=== PATIENT | male | born 1950 | race Two or more races ===

== ENCOUNTER 2018-02-26 13:48 | Inpatient (IN) | payer MEDICARE, OTHER ==
[~2018-02-26] VITALS: Ht 182.9 cm; Wt 96.4 kg
[2018-02-26] MEDS ORDERED: ACETAMINOPHEN 500 MG TAB PO ONE (14:00)
[2018-02-26 15:06] LABS: Hematocrit 42.9 % (41.0-53.0); Hemoglobin 13.9 g/dL (13.5-17.5); Mean Corpuscular Hemoglobin 31.2 pg (28.0-32.0); Mean Corpuscular Hgb Conc. 32.5 g/dL (32.0-36.0); Mean Corpuscular Volume 95.9 fL (80.0-100.0); Platelet Count (auto) 183 10^3/uL (140-450); Red Blood Cells 4.47 10^6/uL (4.5-5.90); Red Cell Distribution Width 14.3 % (11.8-14.3); White Blood Cell 14.7 10^3/uL (4.4-10.8)
[2018-02-26 15:11] LABS: Alanine Aminotransferase 32 U/L (16-61); Anion Gap 12 (5-15); Aspartate Aminotransferase 23 U/L (15-37); BUN/Creatinine Ratio 16.9; Blood Urea Nitrogen 23 mg/dL (7-18); Calcium 9.6 mg/dL (8.5-10.1); Carbon Dioxide 27 mmol/L (21-32); Chloride 97 mmol/L (98-107); GFR African American 68 mL/min; GFR Non-African American 56 mL/min; Glucose 123 mg/dL (74-106); Magnesium 1.9 mg/dL (1.6-2.6); Sodium 136 mmol/L (136-145)
[2018-02-26 15:12] LABS: Band Neutrophils % (manual) 0; Basophils % (manual) 0 (0.0-2.0); Blast Cells 0; Metamyelocytes % 0; Myelocytes % 0; Promyelocytes % 0; Reactive Lymphocytes 0
[2018-02-26 15:17] LABS: Lactic Acid w/Reflex 3.4 mmol/L (0.4-2.0)
[2018-02-26 15:30] LABS: Alkaline Phosphatase 62 U/L (45-117); Bilirubin, Total 0.6 mg/dL (0.2-1.0); Total Protein 8.5 g/dL (6.4-8.2)
[2018-02-26] MEDS ORDERED: VANCOMYCIN PER PHARMACY 0 MG IV SCH (15:45)
[2018-02-26] MEDS ORDERED: cefTRIAXone 1GM/10ml IVPUSH 10 ML IV ONE (15:45)
[2018-02-26] MEDS ORDERED: ONDANSETRON HCL 4 MG/2 ML VIAL IV PRN (16:00)
[2018-02-26] MEDS ORDERED: MORPHINE SULFATE 8mg/ml INJ SDV IV PRN (16:00)
[2018-02-26] MEDS ORDERED: ACETAMINOPHEN 325 MG TAB PO PRN (16:00)
[2018-02-26] MEDS ORDERED: DOCUSATE SOD 100 MG CAP PO PRN (16:00)
[2018-02-26] MEDS ORDERED: NITROGLYCERIN 0.4 MG SL TAB SL PRN (16:00)
[2018-02-26] MEDS ORDERED: SODIUM CHLORIDE 0.9% 2,000 ML IV ONE (16:15)
[2018-02-26] MEDS ORDERED: LORazepam 2MG/ML-1ML VIAL IV PRN (17:00)
[2018-02-26 17:39] LABS: Folate (Folic Acid) 20.13 ng/mL (5.38-24)
[2018-02-26] MEDS: METHADONE HCL 10 MG TAB PO SCH (18:09)
[2018-02-26] MEDS: ENOXAPARIN SOD 40 MG/0.4 ML SYRINGE SC SCH (18:10)
[2018-02-26] MEDS: VANCOMYCIN 1,250 MG in D5W 5% 250 ML IV SCH (18:10)
[2018-02-26] MEDS: FAMOTIDINE 20 MG TAB PO SCH ×2 (18:10→21:59)
[2018-02-26 18:13] LABS: Eosinophils % (manual) 1 (0-7); Lymphocytes % (manual) 3 (10.0-50.0); Monocytes % (manual) 4 (0-12)
[2018-02-26 19:09] LABS: Urine Bacteria NONE SEEN /hpf (None Seen); Urine Blood Negative /uL (Negative); Urine Specific Gravity 1.016 (1.001-1.035); Urine WBC <1 /hpf (0 - 3)
[2018-02-26 19:56] LABS: Lactic Acid w/Reflex 2.6 mmol/L (0.4-2.0)
[2018-02-26 20:00] VITALS: BP 130/82
[2018-02-26] MEDS ORDERED: ALPR-229 PO (20:39)
[2018-02-26] MEDS ORDERED: LOVA40TA72 PO (20:39)
[2018-02-26] MEDS ORDERED: PIO30T PO (20:39)
[2018-02-26] MEDS ORDERED: METH10T PO (20:39)
[2018-02-26] MEDS ORDERED: GABA300C10 PO (20:39)
[2018-02-26] MEDS ORDERED: AMLO5TAB2 PO (20:39)
[2018-02-26] MEDS ORDERED: DAPA1TAB4 PO (20:39)
[2018-02-26] MEDS ORDERED: LINA5TAB PO (20:39)
[2018-02-26] MEDS ORDERED: CYCL1TAB18 PO (20:39)
[2018-02-26] MEDS: ATORVASTATIN 20 MG TAB PO SCH (21:59)
[2018-02-26] MEDS: GABAPENTIN 300 MG CAP PO SCH (21:59)
[2018-02-26] MEDS: SODIUM CHLOR 0.9% PF (SALINE LOCK) 10ML VIAL/SYR IV SCH (22:00)
[2018-02-27] MEDS: METHADONE HCL 10 MG TAB PO SCH ×4 (01:04→18:11)
[2018-02-27 01:15] VITALS: BP 130/82
[2018-02-27 05:13] VITALS: BP 117/77
[2018-02-27] MEDS: GABAPENTIN 300 MG CAP PO SCH ×3 (06:00→21:20)
[2018-02-27] MEDS: SODIUM CHLOR 0.9% PF (SALINE LOCK) 10ML VIAL/SYR IV SCH ×3 (06:36→21:20)
[2018-02-27 07:26] LABS: Basophils # (auto) 0.1 uL; Basophils % (auto) 0.4 % (0.0-2.0); Eosinophils # (auto) 0 uL; Eosinophils % (auto) 0.1 % (0.0-7.0); Hematocrit 42.9 % (41.0-53.0); Hemoglobin 14.1 g/dL (13.5-17.5); Lymphocytes # (auto) 0.7 uL; Lymphocytes % (auto) 4.4 % (10.0-50.0); Mean Corpuscular Hemoglobin 30.8 pg (28.0-32.0); Mean Corpuscular Hgb Conc. 32.8 g/dL (32.0-36.0); Mean Corpuscular Volume 93.9 fL (80.0-100.0); Monocytes # (auto) 0.7 uL; Monocytes % (auto) 4.8 % (0.0-12.0); Neutrophils % (auto) 90.3 % (37.0-80.0); Nucleated Red Blood Cells % 0.1 %; Platelet Count (auto) 182 10^3/uL (140-450); Red Blood Cells 4.57 10^6/uL (4.5-5.90); Red Cell Distribution Width 14.6 % (11.8-14.3); White Blood Cell 15.5 10^3/uL (4.4-10.8)
[2018-02-27 07:45] LABS: Albumin 3.1 g/dL (3.4-5.0); BUN/Creatinine Ratio 15.3; Calcium 8.9 mg/dL (8.5-10.1); Potassium 4.8 mmol/L (3.5-5.1)
[2018-02-27 07:56] LABS: Bilirubin, Total 0.4 mg/dL (0.2-1.0); Total Protein 8.2 g/dL (6.4-8.2)
[2018-02-27 09:00] VITALS: BP 111/70
[2018-02-27] MEDS: ENOXAPARIN SOD 40 MG/0.4 ML SYRINGE SC SCH (09:52)
[2018-02-27] MEDS: cefTRIAXone 1GM/10ml IVPUSH 10 ML IV SCH (09:53)
[2018-02-27] MEDS: amLODIPine BESYLATE 5 MG TAB PO SCH (09:54)
[2018-02-27] MEDS: MULTIPLE VITAMIN TAB PO SCH (09:54)
[2018-02-27] MEDS: HYDROcodone-ACET 5/325MG TAB PO PRN ×3 (09:55→21:19)
[2018-02-27] MEDS: PIOGLITAZONE HYDROCHLORIDE 30 MG TAB PO SCH (09:55)
[2018-02-27] MEDS: FAMOTIDINE 20 MG TAB PO SCH ×2 (09:55→21:19)
[2018-02-27] MEDS ORDERED: VANCOMYCIN 1GM/250ML 0 ML IV ONE (11:43)
[2018-02-27] MEDS: TRADJENTA 5MG PO SCH (12:25)
[2018-02-27] MEDS: FARXIGA 10MG PO SCH (12:25)
[2018-02-27] MEDS: ALPRAZolam 0.5 MG TAB PO PRN ×2 (13:44→21:19)
[2018-02-27 15:00] VITALS: BP 135/75
[2018-02-27] MEDS: VANCOMYCIN 1,250 MG in D5W 5% 250 ML IV SCH (16:23)
[2018-02-27] MEDS: ATORVASTATIN 20 MG TAB PO SCH (21:18)
[2018-02-27] MEDS: CYCLOBENZAPRINE HCL 10 MG TAB PO PRN (21:19)
[2018-02-27 22:00] VITALS: BP 129/76
[2018-02-28] MEDS: METHADONE HCL 10 MG TAB PO SCH ×5 (00:23→12:00)
[2018-02-28 04:50] VITALS: BP 138/82
[2018-02-28] MEDS: VANCOMYCIN 1,250 MG in D5W 5% 250 ML IV SCH (05:12)
[2018-02-28] MEDS: SODIUM CHLOR 0.9% PF (SALINE LOCK) 10ML VIAL/SYR IV SCH (05:12)
[2018-02-28] MEDS: CYCLOBENZAPRINE HCL 10 MG TAB PO PRN (05:18)
[2018-02-28] MEDS: GABAPENTIN 300 MG CAP PO SCH (05:18)
[2018-02-28 06:58] LABS: Basophils # (auto) 0 uL; Basophils % (auto) 0.4 % (0.0-2.0); Eosinophils # (auto) 0.2 uL; Eosinophils % (auto) 1.6 % (0.0-7.0); Hematocrit 43.1 % (41.0-53.0); Hemoglobin 14.1 g/dL (13.5-17.5); Lymphocytes # (auto) 1.2 uL; Lymphocytes % (auto) 10.6 % (10.0-50.0); Mean Corpuscular Hemoglobin 31.1 pg (28.0-32.0); Mean Corpuscular Hgb Conc. 32.8 g/dL (32.0-36.0); Monocytes # (auto) 1.1 uL; Monocytes % (auto) 9.8 % (0.0-12.0); Neutrophils # (auto) 8.8 uL; Neutrophils % (auto) 77.6 % (37.0-80.0); Nucleated Red Blood Cells % 0.1 %; Platelet Count (auto) 159 10^3/uL (140-450); Red Blood Cells 4.54 10^6/uL (4.5-5.90); Red Cell Distribution Width 14.7 % (11.8-14.3); White Blood Cell 11.3 10^3/uL (4.4-10.8)
[2018-02-28 07:03] LABS: Potassium 3.6 mmol/L (3.5-5.1)
[2018-02-28 07:15] LABS: BUN/Creatinine Ratio 15.4; Bilirubin, Total 0.4 mg/dL (0.2-1.0); Calcium 8.7 mg/dL (8.5-10.1); Total Protein 7.9 g/dL (6.4-8.2)
[2018-02-28 08:00] VITALS: BP 111/70
[2018-02-28 09:00] VITALS: BP 153/83
[2018-02-28] MEDS: FAMOTIDINE 20 MG TAB PO SCH (09:49)
[2018-02-28] MEDS: amLODIPine BESYLATE 5 MG TAB PO SCH (09:50)
[2018-02-28] MEDS: MULTIPLE VITAMIN TAB PO SCH (09:50)
[2018-02-28] MEDS: cefTRIAXone 1GM/10ml IVPUSH 10 ML IV SCH (09:50)
[2018-02-28] MEDS: ENOXAPARIN SOD 40 MG/0.4 ML SYRINGE SC SCH (09:50)
[2018-02-28] MEDS: TRADJENTA 5MG PO SCH (09:51)
[2018-02-28] MEDS: FARXIGA 10MG PO SCH (09:51)
[2018-02-28] MEDS: PIOGLITAZONE HYDROCHLORIDE 30 MG TAB PO SCH (09:54)
[2018-02-28 12:55] VITALS: BP 153/83
[2018-02-28 13:00] VITALS: BP 135/82
== END 2018-02-28 13:55 | disposition home or self-care (01) | DRG 871 ==
LOC: ER 13:48 → EDBD 13:48 → TELE 13:49 → TELE-EAST 18:28
PROVIDERS: ADMIT Internal Medicine; ATTEND Family Medicine
DX: A41.9 Sepsis, unspecified organism (principal); I63.9 Cerebral infarction, unspecified; J18.1 Lobar pneumonia, unspecified organism; G93.41 Metabolic encephalopathy; L03.116 Cellulitis of left lower limb; E11.21 Type 2 diabetes mellitus with diabetic nephropathy; E11.22 Type 2 diabetes mellitus with diabetic chronic kidney disease; E11.40 Type 2 diabetes mellitus with diabetic neuropathy, unspecified; E11.65 Type 2 diabetes mellitus with hyperglycemia; E78.00 Pure hypercholesterolemia, unspecified; Z79.899 Other long term (current) drug therapy; F02.80 Dementia in other diseases classified elsewhere, unspecified severity, without behavioral disturbance, psychotic disturbance, mood disturbance, and anxiety; F17.200 Nicotine dependence, unspecified, uncomplicated; G30.9 Alzheimer's disease, unspecified; G89.29 Other chronic pain; I12.9 Hypertensive chronic kidney disease with stage 1 through stage 4 chronic kidney disease, or unspecified chronic kidney disease; L29.9 Pruritus, unspecified; N18.3 Chronic kidney disease, stage 3 (moderate); F41.9 Anxiety disorder, unspecified; Z82.49 Family history of ischemic heart disease and other diseases of the circulatory system; Z83.3 Family history of diabetes mellitus; M54.5 Low back pain
CPT/HCPCS: 36415; 70450; 70551; 71045; 80053; 81001; 82533; 82607; 82746; 82962; 83036; 83605; 83735; 84443; 84484; 85007; 85025; 85027; 87040; 87086; 93005; 93306; 93886; 95819; 96361; 96372; 96374; 96376; 97163; J7060

== ENCOUNTER 2018-05-30 21:30 | Inpatient (IN) | payer MEDICARE, OTHER ==
[~2018-05-30] VITALS: Ht 182.9 cm; Wt 99.2 kg
[~2018-05-30 21:30] MED LIST: ALPR-229 PO; AMLO5TAB13 PO; CYCL1TAB18 PO; DAPA1TAB4 PO; GABA300C10 PO; LINA5TAB PO; LOVA40TA72 PO; METH10T PO; PIO30T PO
[2018-05-30 22:32] LABS: Basophils # (auto) 0.1 uL; Basophils % (auto) 0.5 % (0.0-2.0); Eosinophils # (auto) 0 uL; Hematocrit 48.3 % (41.0-53.0); Hemoglobin 16.1 g/dL (13.5-17.5); Lymphocytes % (auto) 6.2 % (10.0-50.0); Mean Corpuscular Hemoglobin 30.6 pg (28.0-32.0); Mean Corpuscular Hgb Conc. 33.4 g/dL (32.0-36.0); Mean Corpuscular Volume 91.6 fL (80.0-100.0); Monocytes # (auto) 0.9 uL; Monocytes % (auto) 5.7 % (0.0-12.0); Neutrophils # (auto) 14.3 uL; Neutrophils % (auto) 87.6 % (37.0-80.0); Nucleated Red Blood Cells % 0.1 %; Platelet Count (auto) 237 10^3/uL (140-450); Red Blood Cells 5.27 10^6/uL (4.5-5.90); Red Cell Distribution Width 14.7 % (11.8-14.3); White Blood Cell 16.4 10^3/uL (4.4-10.8)
[2018-05-30 22:48] LABS: Albumin 3.7 g/dL (3.4-5.0); BUN/Creatinine Ratio 14.2; Calcium 8.9 mg/dL (8.5-10.1); Potassium 3.8 mmol/L (3.5-5.1)
[2018-05-30 22:50] LABS: Lactic Acid w/Reflex 2.8 mmol/L (0.4-2.0)
[2018-05-30 22:51] LABS: Bilirubin, Total 0.4 mg/dL (0.2-1.0); Total Protein 8.7 g/dL (6.4-8.2)
[2018-05-31] MEDS ORDERED: SODIUM CHLORIDE 0.9% 1,000 ML IVB ONE (03:04)
[2018-05-31 03:32] LABS: Urine Bacteria NONE SEEN /hpf (None Seen); Urine Blood Negative /uL (Negative); Urine Specific Gravity 1.027 (1.001-1.035); Urine WBC <1 /hpf (0 - 3)
[2018-05-31 04:06] LABS: Amylase 46 U/L (25-115); Lipase 63 U/L (73-393)
[2018-05-31] MEDS ORDERED: ACETAMINOPHEN 325 MG TAB PO PRN (05:45)
[2018-05-31] MEDS ORDERED: ONDANSETRON HCL 4 MG/2 ML VIAL IV PRN (05:45)
[2018-05-31] MEDS: PANTOPRAZOLE 40 MG/10 ML VIAL IV SCH (06:13)
[2018-05-31] MEDS: cefTRIAXone 1GM/10ml IVPUSH 10 ML IV SCH (06:13)
[2018-05-31] MEDS: SODIUM CHLORIDE 0.9% 1,000 ML IV SCH ×2 (06:13→20:11)
[2018-05-31 07:15] LABS: Hematocrit 43.7 % (41.0-53.0); Hemoglobin 14.6 g/dL (13.5-17.5)
[2018-05-31] MEDS: ACCU-CHEK COMFORT CURVE STRIP VI SCH ×3 (10:32→20:49)
[2018-05-31] MEDS: amLODIPine BESYLATE 5 MG TAB PO SCH (10:33)
[2018-05-31] MEDS: PIOGLITAZONE HYDROCHLORIDE 30 MG TAB PO SCH (10:34)
[2018-05-31] MEDS ORDERED: METHADONE HCL 10 MG TAB PO SCH (12:00)
[2018-05-31] MEDS: ALPRAZolam 0.5 MG TAB PO PRN ×2 (12:20→20:49)
[2018-05-31] MEDS: CYCLOBENZAPRINE HCL 10 MG TAB PO PRN ×2 (12:20→23:50)
[2018-05-31 13:48] VITALS: BP 129/85
[2018-05-31 14:32] LABS: INR 0.99 (0.9-1.15); Partial Thromboplastin Time 32.2 sec (23.78-33.04); Prothrombin Time 10.6 sec (9.27-12.13)
[2018-05-31] MEDS: metroNIDAZOLE 500MG/100ML 100 ML IV SCH ×2 (14:42→20:49)
[2018-05-31] MEDS: METHADONE HCL 10 MG TAB PO SCH ×2 (14:43→20:49)
[2018-05-31 15:14] VITALS: BP_SYST 129; BP_SYST 151; BP_DIAS 85; BP_DIAS 98
[2018-05-31 17:10] VITALS: BP 130/75
[2018-05-31] MEDS: HYDROcodone-ACET 5/325MG TAB PO PRN ×2 (19:56→23:50)
[2018-05-31 21:58] VITALS: BP 137/86
[2018-06-01] MEDS: METHADONE HCL 10 MG TAB PO SCH ×4 (03:10→21:13)
[2018-06-01 05:00] VITALS: BP 144/87
[2018-06-01] MEDS: metroNIDAZOLE 500MG/100ML 100 ML IV SCH ×3 (05:36→22:10)
[2018-06-01] MEDS: ACCU-CHEK COMFORT CURVE STRIP VI SCH ×4 (05:36→22:10)
[2018-06-01] MEDS: cefTRIAXone 1GM/10ml IVPUSH 10 ML IV SCH (05:36)
[2018-06-01] MEDS: PANTOPRAZOLE 40 MG/10 ML VIAL IV SCH (05:37)
[2018-06-01 05:47] LABS: Albumin 2.9 g/dL (3.4-5.0); Bilirubin, Total 0.4 mg/dL (0.2-1.0); Calcium 7.7 mg/dL (8.5-10.1); Potassium 3.5 mmol/L (3.5-5.1)
[2018-06-01] MEDS: HYDROcodone-ACET 5/325MG TAB PO PRN ×2 (05:51→23:15)
[2018-06-01] MEDS: ALPRAZolam 0.5 MG TAB PO PRN ×2 (08:36→18:05)
[2018-06-01 09:00] VITALS: BP 121/76
[2018-06-01] MEDS: SODIUM CHLORIDE 0.9% 1,000 ML IV SCH ×2 (09:45→23:15)
[2018-06-01 11:20] LABS: Basophils # (auto) 0 uL; Basophils % (auto) 0.3 % (0.0-2.0); Eosinophils # (auto) 0.1 uL; Eosinophils % (auto) 1.3 % (0.0-7.0); Hematocrit 42.5 % (41.0-53.0); Hemoglobin 14.3 g/dL (13.5-17.5); Lymphocytes # (auto) 1.1 uL; Lymphocytes % (auto) 12.8 % (10.0-50.0); Mean Corpuscular Hemoglobin 31.1 pg (28.0-32.0); Mean Corpuscular Hgb Conc. 33.7 g/dL (32.0-36.0); Mean Corpuscular Volume 92.4 fL (80.0-100.0); Monocytes # (auto) 0.6 uL; Monocytes % (auto) 7.1 % (0.0-12.0); Neutrophils # (auto) 6.7 uL; Neutrophils % (auto) 78.5 % (37.0-80.0); Platelet Count (auto) 169 10^3/uL (140-450); Red Blood Cells 4.59 10^6/uL (4.5-5.90); Red Cell Distribution Width 14.4 % (11.8-14.3); White Blood Cell 8.6 10^3/uL (4.4-10.8)
[2018-06-01 11:58] VITALS: BP 132/86
[2018-06-01] MEDS: PIOGLITAZONE HYDROCHLORIDE 30 MG TAB PO SCH (14:02)
[2018-06-01] MEDS: CYCLOBENZAPRINE HCL 10 MG TAB PO PRN (14:03)
[2018-06-01] MEDS: amLODIPine BESYLATE 5 MG TAB PO SCH (14:03)
[2018-06-01 17:00] VITALS: BP 131/79
[2018-06-01] MEDS: SUCRALFATE 1 GM/10 ML ORAL SUSP PO SCH ×2 (17:07→22:10)
[2018-06-01 21:05] VITALS: BP 107/72
[2018-06-02] MEDS: ALPRAZolam 0.5 MG TAB PO PRN (02:03)
[2018-06-02] MEDS: METHADONE HCL 10 MG TAB PO SCH ×2 (03:17→09:05)
[2018-06-02 04:36] VITALS: BP 152/79
[2018-06-02 05:44] LABS: Basophils # (auto) 0 uL; Basophils % (auto) 0.5 % (0.0-2.0); Eosinophils # (auto) 0.3 uL; Eosinophils % (auto) 4.9 % (0.0-7.0); Hematocrit 41.1 % (41.0-53.0); Hemoglobin 13.8 g/dL (13.5-17.5); Lymphocytes # (auto) 1.3 uL; Lymphocytes % (auto) 22.7 % (10.0-50.0); Mean Corpuscular Hgb Conc. 33.5 g/dL (32.0-36.0); Mean Corpuscular Volume 92.5 fL (80.0-100.0); Monocytes # (auto) 0.6 uL; Monocytes % (auto) 9.7 % (0.0-12.0); Neutrophils # (auto) 3.6 uL; Neutrophils % (auto) 62.2 % (37.0-80.0); Nucleated Red Blood Cells % 0.1 %; Platelet Count (auto) 161 10^3/uL (140-450); Red Blood Cells 4.44 10^6/uL (4.5-5.90); Red Cell Distribution Width 14.4 % (11.8-14.3); White Blood Cell 5.8 10^3/uL (4.4-10.8)
[2018-06-02] MEDS: metroNIDAZOLE 500MG/100ML 100 ML IV SCH (06:32)
[2018-06-02] MEDS: cefTRIAXone 1GM/10ml IVPUSH 10 ML IV SCH (06:33)
[2018-06-02] MEDS: PANTOPRAZOLE 40 MG/10 ML VIAL IV SCH (06:33)
[2018-06-02] MEDS: SUCRALFATE 1 GM/10 ML ORAL SUSP PO SCH ×2 (06:35→11:30)
[2018-06-02] MEDS: ACCU-CHEK COMFORT CURVE STRIP VI SCH ×2 (06:45→11:30)
[2018-06-02] MEDS: amLODIPine BESYLATE 5 MG TAB PO SCH (09:52)
[2018-06-02] MEDS: PIOGLITAZONE HYDROCHLORIDE 30 MG TAB PO SCH (10:00)
== END 2018-06-02 11:59 | disposition home or self-care (01) | DRG 872 ==
LOC: ER 21:30 → OVERFLOW 21:31 → WEST WING 05-31 12:21
PROVIDERS: ADMIT Nurse Practitioner; ATTEND Family Medicine
DX: A41.9 Sepsis, unspecified organism (principal); K92.2 Gastrointestinal hemorrhage, unspecified; E11.9 Type 2 diabetes mellitus without complications; E78.00 Pure hypercholesterolemia, unspecified; E78.5 Hyperlipidemia, unspecified; E86.0 Dehydration; F11.90 Opioid use, unspecified, uncomplicated; F41.9 Anxiety disorder, unspecified; G89.29 Other chronic pain; M54.9 Dorsalgia, unspecified; I10 Essential (primary) hypertension; D72.829 Elevated white blood cell count, unspecified; M41.9 Scoliosis, unspecified; M51.36 Other intervertebral disc degeneration, lumbar region; Z82.49 Family history of ischemic heart disease and other diseases of the circulatory system; Z83.3 Family history of diabetes mellitus
CPT/HCPCS: 36415; 71045; 74176; 80053; 81001; 82150; 82962; 83605; 83690; 85014; 85018; 85025; 85610; 85730; 86850; 86900; 86901; 87040; 93005; 96360; C9113; G0378; J0696; J3490

== ENCOUNTER 2023-06-11 13:32 | Emergency (ER) | payer MEDICARE, OTHER ==
[~2023-06-11] VITALS: Ht 182.9 cm; Wt 87.5 kg
[2023-06-11 13:32] VITALS: BP 94/61; RESP 18; O2SAT 94
[~2023-06-11 13:32] MED LIST changes: -ALPR-229 PO; +ALPR2TAB6 PO; +AMLO1TAB22 PO; -AMLO5TAB13 PO; +CYCL-839 PO; -CYCL1TAB18 PO; +GABA-1250 PO; -GABA300C10 PO
[2023-06-11 14:43] LABS: Basophils # (auto) 0.1 10 ^3/uL (0-0.2); Basophils % (auto) 0.7 % (0.0-2.0); Eosinophils # (auto) 0.2 10 ^3/uL (0-0.8); Eosinophils % (auto) 2.3 % (0.0-7.0); Hematocrit 36.3 % (41.0-53.0); Hemoglobin 11.8 g/dL (13.5-17.5); Lymphocytes % (auto) 22.8 % (10.0-50.0); Mean Corpuscular Hemoglobin 31.1 pg (28.0-32.0); Mean Corpuscular Hgb Conc. 32.7 g/dL (32.0-36.0); Mean Corpuscular Volume 95.1 fL (80.0-100.0); Monocytes # (auto) 0.7 10 ^3/uL (0-1.3); Neutrophils # (auto) 5.7 10 ^3/uL (1.6-8.6); Neutrophils % (auto) 66.2 % (37.0-80.0); Nucleated Red Blood Cells % 0.1 %; Red Blood Cells 3.81 10^6/uL (4.5-5.90); Red Cell Distribution Width 13.6 % (11.8-14.3); White Blood Cell 8.6 10^3/uL (4.4-10.8)
[2023-06-11 15:09] LABS: Alanine Aminotransferase 21 U/L (7-40); Albumin 4.6 g/dL (3.2-4.8); Alkaline Phosphatase 61 U/L (46-116); Anion Gap 5 (5-15); Aspartate Aminotransferase 21 U/L (13-40); BUN/Creatinine Ratio 8.5 (10.0-20.0); Blood Urea Nitrogen 12 mg/dL (9-23); Calcium 9.3 mg/dL (8.7-10.4); Carbon Dioxide 29 mmol/L (20-30); Chloride 103 mmol/L (98-107); Glucose 203 mg/dL (74-106); Potassium 4.5 mmol/L (3.5-5.1); Sodium 137 mmol/L (136-145)
[2023-06-11 15:10] LABS: Bilirubin, Total 0.3 mg/dL (0.2-1.0); Total Protein 7.1 g/dL (5.7-8.2)
[2023-06-11 20:06] VITALS: PULSE 83
== END 2023-06-11 20:15 | disposition home or self-care (01) ==
LOC: ER 13:32
DX: S01.01XA Laceration without foreign body of scalp, initial encounter (principal); R55 Syncope and collapse; E11.65 Type 2 diabetes mellitus with hyperglycemia; E78.5 Hyperlipidemia, unspecified; I10 Essential (primary) hypertension; W18.09XA Striking against other object with subsequent fall, initial encounter; Y93.89 Activity, other specified; Y92.89 Other specified places as the place of occurrence of the external cause; Y99.8 Other external cause status
CPT/HCPCS: 36415; 70450; 80053; 81001; 85025; 93005